=== PATIENT | male | born 1960 | race African-American/Black ===

== ENCOUNTER 2023-09-04 06:50 | Day surgery (SDC) | payer OTHER ==
[2023-08-31 15:18] VITALS: BMI 42.7
[2023-09-04] MEDS ORDERED: MIDAZOLAM HCL 2 MG/2 ML SINGLE DOSE VIAL ONE (09:53)
[2023-09-04] MEDS ORDERED: BUPIVACAINE HCL/PF 0.5% (5 MG/ML) 30 ML VIAL IJ ONE (09:53)
[2023-09-04] MEDS ORDERED: ACETAMINOPHEN INJECTION 100 ML IVPB ONE (09:53)
[2023-09-04] MEDS ORDERED: ONDANSETRON 4 MG/2 ML VIAL IVPUSH PRN (09:55)
[2023-09-04] MEDS ORDERED: ACETAMINOPHEN 325 MG TABLET (FP) PO PRN (09:55)
[2023-09-04] MEDS ORDERED: oxyCODONE HCL 5 MG TABLET PO PRN (09:55)
[2023-09-04] MEDS ORDERED: LACTATED RINGERS SOLUTION 1,000 ML IV SCH (10:00)
[2023-09-04] MEDS ORDERED: VANCOMYCIN 1,000 MG VIAL (RESTRICTED TO ID ONLY) ONE (10:08)
[2023-09-04] MEDS ORDERED: PROPOFOL 60 ML ONE (10:13)
[2023-09-04] MEDS ORDERED: ceFAZolin SODIUM 1 GM VIAL ONE ×3 (10:29)
[2023-09-04] MEDS ORDERED: TRANEXAMIC ACID 1000 MG/10 ML VIAL ONE (10:29)
[2023-09-04] MEDS ORDERED: ePHEDrine SULFATE 50 MG/1 ML AMPULE ONE (11:29)
[2023-09-04] MEDS ORDERED: BUPIVICAINE 0.25%/MORPH PF/KETOROLAC - 51ML DISP.SYRINGE IA ONE ×2 (11:53→12:05)
[2023-09-04] MEDS ORDERED: SENNOSIDES/DOCUSATE COMBO (SENNA PLUS) TABLET (UD) PO PRN (12:29)
[2023-09-04] MEDS ORDERED: PATIENT'S OWN MEDICATION (NON-FORMULARY) (Semaglutide [Ozempic] 1 MG/0.75 ML Pen.Injctr) SQ SCH (12:45)
[2023-09-04] MEDS ORDERED: PROMETHAZINE HCL 25 MG/1 ML VIAL ONE (13:49)
[2023-09-04] MEDS: CEFAZOLIN 3 GM in DEXTROSE 5%-WATER - 100 ML IVPB SCH (18:42)
[2023-09-04] MEDS ORDERED: amLODIPine BESYLATE 5 MG TABLET (FP) PO SCH (22:00)
[2023-09-04] MEDS ORDERED: LISINOPRIL 10 MG TABLET PO SCH (22:00)
[2023-09-05] MEDS: oxyCODONE HCL 5 MG TABLET PO PRN ×2 (01:42→06:52)
[2023-09-05] MEDS: CEFAZOLIN 3 GM in DEXTROSE 5%-WATER - 100 ML IVPB SCH ×2 (04:00→11:32)
[2023-09-05] MEDS ORDERED: ACETAMINOPHEN 325 MG TABLET (FP) PO SCH (08:00)
[2023-09-05] MEDS ORDERED: KETOROLAC TROMETHAMINE 30 MG/1 ML VIAL IVPUSH ONE (08:01)
[2023-09-05 09:09] LABS: HEMATOCRIT 36.3 % (35.4-49); HEMOGLOBIN 11.8 G/dL (11.7-16.9); MCH 27.8 pg (25.7-33.7); MCHC 32.5 g/dl (32.0-35.9); MEAN CELL VOLUME 85.5 fl (80-96); MEAN PLT VOLUME 8.5 fl (7.5-11.1); RBC 4.24 10^6/uL (4.00-5.60); RDW 15.4 % (11.9-15.9); WHITE BLOOD COUNT 12.1 10^3/uL (4.0-10.8)
[2023-09-05 09:15] LABS: CREATININE 1.5 mg/dl (0.6-1.3); POTASSIUM 4.1 mmol/L (3.5-5.1)
[2023-09-05] MEDS ORDERED: ENOXAPARIN NA (PORCINE) 40 MG/0.4 ML DISP.SYRIN SQ SCH (10:00)
[2023-09-05 10:05] VITALS: RESP 18
[2023-09-05 14:33] VITALS: BP 117/62; PULSE 92; TEMP 98.4
== END 2023-09-05 15:27 | disposition home or self-care (01) ==
LOC: FASUSAT 06:50 → EDSTATUS 10:00 → FM/S 15:20 → FASUSAT 09-05 15:27
PROVIDERS: ATTEND Orthopaedic Surgery
PROC: 8E0Y0CZ Robotic Assisted Procedure of Lower Extremity, Open Approach (ICD-10-PCS; 2023-09-04)
PROC: 0SR90JA Replacement of Right Hip Joint with Synthetic Substitute, Uncemented, Open Approach (ICD-10-PCS; principal; 2023-09-04 10:40)
DX: M16.11 Unilateral primary osteoarthritis, right hip (principal)
CPT/HCPCS: 20985; 27130; C1776; S2900; 36415; 73502-TC-RT-FY; 80048; 82962; 85027; 88305-TC; 88311-TC; 94760; 97010-GP; 97116-GP; 97162-GP; C1713